=== PATIENT | female | born 1935 | race Caucasian/White ===

== ENCOUNTER 2022-05-08 22:45 | Inpatient (IN) | payer MEDICARE, OTHER ==
[~2022-05-08] VITALS: Ht 160 cm; Wt 44.5 kg
[~2022-05-08 22:45] MED LIST: ATOR20TA PO; LISI10TA29 PO; METO-357 PO; NICA20CA4 PO
--- NOTE | 2022-05-08 22:46 | NUR ---
BIBRA39 FROM HOME, SON STATES "SHE HAD SLURRED SPEECH X1HOUR" WITH LEFT SIDED FACIAL DROOP HX OF STROKE BS-101. PATIENT ALERT AND ORIENTED X3. BROUGHT IN BY STRETCHER TO ROOM 11 ON MONITOR AND POX. SEEN BY MD AT TRIAGE.
--- NOTE | 2022-05-08 22:47 | NUR ---
CODE STROKE ACTIVATED
--- NOTE | 2022-05-08 22:48 | NUR ---
EMT AT BEDSIDE FOR EKG
--- NOTE | 2022-05-08 22:50 | NUR ---
IV CANNULA G18 INSERTED ON RIGHT AC. BLOOD DRAWN AND SENT TO LAB
--- NOTE | 2022-05-08 22:51 | NUR ---
TELEMED NEURO ASSESSMENT ACTIVATED
--- NOTE | 2022-05-08 22:52 | NUR ---
EKG DONE AT BEDSIDE.
--- NOTE | 2022-05-08 22:53 | NUR ---
PATIENT GOING TO CT
--- NOTE | 2022-05-08 22:54 | NUR ---
BLOOD COLLECTED AND SENT TO LAB
[2022-05-08] MEDS ORDERED: ONDANSETRON HCL/PF 4 MG/2 ML VIAL ONE (22:58)
--- NOTE | 2022-05-08 22:58 | NUR ---
PATIENT VOMITED. ORDERED MEDICINE TO GIVE.
[2022-05-08] MEDS ORDERED: ONDANSETRON HCL/PF 4 MG/2 ML VIAL IV ONE (23:00)
--- NOTE | 2022-05-08 23:00 | NUR ---
DR KEENAN ON THE PHONE WITH NEUROLOGIST, DR BROOKE
--- NOTE | 2022-05-08 23:06 | NUR ---
PT BACK FROM CT.
--- NOTE | 2022-05-08 23:15 | NUR ---
TELE NEURO IN PROCESS
--- NOTE | 2022-05-08 23:29 | NUR ---
XRAY DONE AT BEDSIDE
[2022-05-08 23:32] LABS: CALCIUM, SERUM 7.8 mg/dL (8.5-10.1); CARBON DIOXIDE 29 mmol/L (21-32); CHLORIDE 109 mmol/L (98-107); CREATININE 0.8 mg/dL (0.6-1.3); GLUCOSE 101 mg/dL (74-106); SODIUM SERUM 141 mmol/L (136-145); UREA NITROGEN, BLOOD 12 mg/dL (7-18)
[2022-05-08 23:34] LABS: BASOPHILS % (AUTO) 0.4 % (0.0-2.0); EOSINOPHILS % (AUTO) 0.1 % (0.0-6.0); HEMATOCRIT 44 % (33-45); HEMOGLOBIN 13.9 g/dL (11.5-14.8); LYMPHOCYTES # (AUTO) 1.6 K/uL (0.8-4.8); LYMPHOCYTES % (AUTO) 29.2 % (20.0-44.0); MEAN CORPUSCULAR HGB CONC 32 g/dl (31.0-36.0); MEAN CORPUSCULAR VOLUME 101 fL (82-100); MONOCYTES # (AUTO) 0.7 K/uL (0.1-1.30); MONOCYTES % (AUTO) 12.5 % (2.0-12.0); NEUTROPHILS # (AUTO) 3.1 K/uL (1.8-8.9); NEUTROPHILS % (AUTO) 57.8 % (43.0-81.0); PLATELET COUNT (AUTO) 105 K/uL (150-450); RED BLOOD CELL COUNT(AUTO) 4.33 MIL/uL (4.0-5.2); WHITE BLOOD COUNT (AUTO) 5.4 K/uL (4.3-11.0)
--- NOTE | 2022-05-08 23:50 | NUR ---
willian collected and sent to lab
--- NOTE | 2022-05-09 00:10 | NUR ---
urine collected and sent to lab
[2022-05-09 00:48] LABS: BILIRUBIN,URINE NEGATIVE (NEGATIVE); COLOR,URINE YELLOW (YELLOW); LEUKOCYTE ESTERASE ,URINE SMALL (NEGATIVE); NITRITE, URINE NEGATIVE (NEGATIVE); PH,URINE 7.5 (5.0-8.0); PROTEIN,URINE NEGATIVE (NEGATIVE); UGLUCOSE NEGATIVE (NEGATIVE); UROBILINOGEN,URINE 0.2 EU/dL (0.2)
[2022-05-09] MEDS ORDERED: METOPROLOL TARTRATE 50 MG TABLET ONE (01:18)
--- NOTE | 2022-05-09 01:27 | NUR ---
CALL FROM LAB: POSITIVE FOR COVID. AWARE. PT WAS TRANSFERRED TO ISOLATION ROOM. SON AT THE BED SIDE MADE AWARE
[2022-05-09] MEDS ORDERED: METOPROLOL TARTRATE 25 MG TABLET PO ONE (01:30)
[2022-05-09 01:40] LABS: BACTERIA,URINE Few /HPF (None Seen); SQUAMOUS EPITHELIAL CELL,UR Moderate /HPF (None Seen)
--- NOTE | 2022-05-09 01:46 | NUR ---
FAXED COVID RESULTS TO PRATIBHA CROOKS EDI SPECIALIST
--- NOTE | 2022-05-09 02:49 | NUR ---
PER GABE MCKINNON AT [facility], THEY'RE WORKING ON TRANSFERRING PATIENT TO [facility]. PODIATRIC SURGEON MD IS DISHA, AWAITING FOR HIS CALL BACK.
--- NOTE | 2022-05-09 02:52 | NUR ---
DR KEENAN ON THE PHONE WITH AT [facility]
--- NOTE | 2022-05-09 05:15 | NUR ---
PER PRATIBHA CM AT [facility], PT GOT ACCPETED AT [facility] , [facility], RM [address] SALES. # FOR REPORT: [phone] PRATIBHA WILL CALL US BACK WITH AMBULANCE ETA
--- NOTE | 2022-05-09 05:42 | NUR ---
[facility] eta: 1100
[2022-05-09] MEDS ORDERED: LISINOPRIL (20MG) 20 MG TABLET ONE (05:58)
--- NOTE | 2022-05-09 07:53 | NUR ---
[facility] RN FOR REPORT CURRENTLY UNAVAILABLE; CALL BACK IN 30MINS.
--- NOTE | 2022-05-09 08:40 | NUR ---
PT REPORT GIVEN TO MIQUEL GARZON AT [facility].
[2022-05-09] MEDS ORDERED: LISINOPRIL (10MG) 10 MG TABLET PO SCH (09:00)
--- NOTE | 2022-05-09 10:44 | NUR ---
UPDATED TRANSPORT ETA [id number]
--- NOTE | 2022-05-09 12:10 | NUR ---
BP TAKEN 227/118
[2022-05-09] MEDS ORDERED: ALEN70TA80 PO (12:12)
[2022-05-09] MEDS ORDERED: LATA2.5D15 LEFTEYE (12:12)
[2022-05-09] MEDS ORDERED: TAMO20TA4 PO (12:12)
--- NOTE | 2022-05-09 12:17 | NUR ---
RETAKEN BP TAKEN 217/112. INFORMED MD AND STREET FLUSHER DRIVER.
--- NOTE | 2022-05-09 12:23 | NUR ---
PT UNABLE TO BE TAKEN BY TRANSPORTATION D/T ELEVATED BP; PT UNSTABLE FOR TRANSPORT.
[2022-05-09] MEDS ORDERED: ASPI-1169 PO (13:00)
[2022-05-09] MEDS ORDERED: MAGN250T2 PO (13:00)
[2022-05-09] MEDS ORDERED: TURM500C9 PO (13:00)
[2022-05-09] MEDS ORDERED: MULT-447 PO (13:00)
[2022-05-09] MEDS ORDERED: hydrALAZINE HCL IV 20 MG VIAL IV ONE (13:00)
[2022-05-09] MEDS ORDERED: VIT1CAPS44 PO (13:00)
[2022-05-09] MEDS ORDERED: TIMO5DRO31 EACHEYE (13:00)
[2022-05-09] MEDS ORDERED: ALBUTEROL SULFATE 8 GM HFA.AER.AD IH PRN (13:30)
[2022-05-09] MEDS ORDERED: ACETAMINOPHEN 650 MG/SUPP.RECT RC PRN (13:30)
[2022-05-09] MEDS ORDERED: ONDANSETRON HCL/PF 4 MG/2 ML VIAL IVP PRN (13:30)
[2022-05-09] MEDS ORDERED: hydrALAZINE HCL IV 20 MG VIAL ONE (13:31)
--- NOTE | 2022-05-09 13:45 | NUR ---
[facility] WAS NOTFIED OF PT STATUS
[2022-05-09 14:01] LABS: BASOPHILS % (AUTO) 0.2 % (0.0-2.0); HEMATOCRIT 50 % (33-45); HEMOGLOBIN 16.3 g/dL (11.5-14.8); LYMPHOCYTES # (AUTO) 1.1 K/uL (0.8-4.8); LYMPHOCYTES % (AUTO) 10.5 % (20.0-44.0); MEAN CORPUSCULAR HGB CONC 33 g/dl (31.0-36.0); MEAN CORPUSCULAR VOLUME 97 fL (82-100); MONOCYTES # (AUTO) 0.6 K/uL (0.1-1.30); MONOCYTES % (AUTO) 5.8 % (2.0-12.0); NEUTROPHILS # (AUTO) 8.8 K/uL (1.8-8.9); NEUTROPHILS % (AUTO) 83.5 % (43.0-81.0); PLATELET COUNT (AUTO) 130 K/uL (150-450); RED BLOOD CELL COUNT(AUTO) 5.18 MIL/uL (4.0-5.2); WHITE BLOOD COUNT (AUTO) 10.5 K/uL (4.3-11.0)
[2022-05-09 14:14] LABS: CARBON DIOXIDE 29 mmol/L (21-32); CHLORIDE 103 mmol/L (98-107); SODIUM SERUM 142 mmol/L (136-145)
[2022-05-09 14:37] LABS: ALANINE AMINOTRANSFERASE 30 U/L (12-78); ALBUMIN 3.3 g/dL (3.4-5.0); ALKALINE PHOSPHATASE 57 U/L (46-116); ASPARTATE AMINOTRANSFERASE 41 U/L (15-37); BILIRUBIN,TOTAL 0.5 mg/dL (0.2-1.0); CALCIUM, SERUM 8.3 mg/dL (8.5-10.1); CREATININE 0.7 mg/dL (0.6-1.3); GLUCOSE 131 mg/dL (74-106); TOTAL PROTEIN, SERUM 7.1 g/dL (6.4-8.2); UREA NITROGEN, BLOOD 10 mg/dL (7-18)
[2022-05-09] MEDS ORDERED: TIMO10DR19 LEFTEYE (14:37)
--- NOTE | 2022-05-09 14:50 | NUR ---
BED GIVEN 109, PT CAN BE MOVED AFTER 1500
--- NOTE | 2022-05-09 14:52 | NUR ---
PT SEEN BY DR. JIMENEZ W/ ORDERS NOTED.
--- NOTE | 2022-05-09 15:14 | NUR ---
PT REPORT GIVEN TO MIQUEL CANNON
[2022-05-09 15:21] LABS: THYROID STIMULATING HORMONE 1.528 uIU/mL (0.358-3.74)
--- NOTE | 2022-05-09 15:49 | NUR ---
PT TRANSFERRED TO 109 VIA [facility] ACLS PROTOCOL. WARM HANDOFF GIVEN TO MIQUEL CANNON.
[2022-05-09 16:00] VITALS: BP 145/85
--- NOTE | 2022-05-09 16:00 | NUR ---
RN NOTE RECEIVED PATIENT PLACED IN ROOM 109. NO CURRENT SIGNS OF SOB OR PAIN
[2022-05-09] MEDS ORDERED: TIMOLOL MALEATE/PF 0.25% 1 DROP DROPERETTE EACHEYE SCH (17:00)
--- NOTE | 2022-05-09 18:00 | NUR ---
RN NOTE BS LEVEL 131 NO COVERAGE GIVEN DUE TO PATIENTS NPO STATUS
[2022-05-09] MEDS: CEFTRIAXONE 1 G in IV D5W 50 ML IV SCH (18:10)
[2022-05-09] MEDS: BLOOD SUGAR DIAGNOSTIC 1 EACH STRIP IN SCH ×4 (18:10→23:44)
[2022-05-09] MEDS: TIMOLOL MALEATE/PF 0.25% 1 DROP DROPERETTE LEFTEYE SCH (18:11)
--- NOTE | 2022-05-09 19:01 | NUR ---
RN CLOSING NOTE PATIENT RESTING IN BED A/OX1 NO NC 2 L. NO CURRENT COMPLAINTS OF PAIN OR SOB. PATIENT ON TELE MONITOR, IV ACCESS ON RIGHT AC AND LEFT AC RUNNING TKO. PATIENT NPO DUE TO PENDING SWALLOW EVAL. WOUND CARE EVAL PENDING. SAFETY MEASURE IN PLACE WILL ENDORSE TO NIGHT NURSE FOR CHRISTIANA.
[2022-05-09 20:00] VITALS: BP 171/98
--- NOTE | 2022-05-09 20:25 | NUR ---
CALLED [facility]AY[facility] ACADEMIC DEAN REGARDING BP 180S AT THIS TIME, AFTER RECHECK BP 171/98, AWAITING FOR CALL BACK, PER NEUROLOGIST TARGET SBP <180.
--- NOTE | 2022-05-09 20:56 | NUR ---
RECEIVE ORDER FROM ZAYNAB STRAP CUTTER FOR CLONIDINE 0.1 MG Q6 FOR SBP >160, INFORMED AGAIN THAT PATIENT IS NPO AND PER HER TO START HYDRALAZINE 10MG IVP Q6HR FOR SBP >160, ORDE NOTED AND CARRIED OUT.
[2022-05-09] MEDS: ATORVASTATIN 40 MG TABLET PO SCH (21:02)
[2022-05-09] MEDS: LATANOPROST EYE DROP 0.005% 2.5 ML BOTTLE LEFTEYE SCH (21:05)
[2022-05-09] MEDS: hydrALAZINE HCL IV 20 MG VIAL IV PRN (21:06)
[2022-05-09] MEDS ORDERED: LATANOPROST EYE DROP 0.005% 2.5 ML BOTTLE EACHEYE SCH (22:00)
[2022-05-10] VITALS: BP 142/88
--- NOTE | 2022-05-10 00:05 | NUR ---
rn notes, paged natalio manager environmental health and safety fo notify regarding blood sugar 152mg/dl, patient NPO with no sliding scale coverage, awaiting for call back.
--- NOTE | 2022-05-10 00:16 | NUR ---
Tawny construction estimator replied with no new order for blood sugar level, will continue to monitor closely.
[2022-05-10 04:00] VITALS: BP 175/97
[2022-05-10] MEDS: hydrALAZINE HCL IV 20 MG VIAL IV PRN ×2 (04:11→09:39)
[2022-05-10] MEDS: BLOOD SUGAR DIAGNOSTIC 1 EACH STRIP IN SCH ×7 (06:00→22:02)
--- NOTE | 2022-05-10 06:32 | NUR ---
RN CLOSING NOTES, PATIENT IN BED ASLEEP AT THIS TIME, A/O X2 ABLE TO ANSWER SIMPLE QUESTIONS, AT 2LPM VIA NC, WITH O2 >94%, NO SOB/ACUTE DISTRESS NOTED DURING THE NIGHT, NSR IN TELE MONITOR, NPO, WILL HAVE SWALLOW EVALUATION TODAY WELL DIETARY CONSULT, NOTED WITH EXCESSIVE THICK SECRETIONS, ORAL SUCTIONING PROVIDED PRN, HYDRALAZINE IVP GIVEN 2X DURING THE NIGHT FOR ELEVATED BLOOD PRESSURE, VITAL SIGNS STABLE, BED LOCKED AND IN LOWEST POSITION, ALL SAFETY PRECAUTIONS MAINTAINED, CALL LIGHT W/I REACH, WILL ENDORSE CONTINUITY OF CARE TO ONCOMING NURSE.
[2022-05-10 06:34] LABS: HEMATOCRIT 50 % (33-45); HEMOGLOBIN 17.1 g/dL (11.5-14.8); LYMPHOCYTES # (AUTO) 1.1 K/uL (0.8-4.8); LYMPHOCYTES % (AUTO) 9.7 % (20.0-44.0); MEAN CORPUSCULAR HGB CONC 34 g/dl (31.0-36.0); MEAN CORPUSCULAR VOLUME 94 fL (82-100); MONOCYTES # (AUTO) 0.6 K/uL (0.1-1.30); MONOCYTES % (AUTO) 5.5 % (2.0-12.0); NEUTROPHILS # (AUTO) 9.6 K/uL (1.8-8.9); NEUTROPHILS % (AUTO) 84.8 % (43.0-81.0); PLATELET COUNT (AUTO) 123 K/uL (150-450); RED BLOOD CELL COUNT(AUTO) 5.33 MIL/uL (4.0-5.2); WHITE BLOOD COUNT (AUTO) 11.3 K/uL (4.3-11.0)
[2022-05-10 06:57] LABS: ALBUMIN 2.9 g/dL (3.4-5.0); BILIRUBIN,TOTAL 0.4 mg/dL (0.2-1.0); CALCIUM, SERUM 8.3 mg/dL (8.5-10.1); CREATININE 0.8 mg/dL (0.6-1.3); POTASSIUM 3.9 mmol/L (3.5-5.1); TOTAL PROTEIN, SERUM 6.7 g/dL (6.4-8.2)
[2022-05-10 06:59] LABS: CHOLESTEROL 125 mg/dL (<200); HDL CHOLESTEROL 66 mg/dL (40-60); LDL 49 mg/dL (0-99); TRIGLYCERIDES 86 mg/dL (30-150)
[2022-05-10 07:17] LABS: D-DIMER 1.61 mg/L(FEU (0.17-0.50)
--- NOTE | 2022-05-10 07:45 | NUR ---
RN NOTE PT RECEIVED RESTING IN BED, AWAKE ALERT AND RESPONSIVE. ON O2 VIA NC @2L. NOT IN DISTRESS. CONT IN NPO. WITH LAC G20 AND RAC G24. NO IVF RUNNING AT THIS TIME. WILL CONT TO MONITOR.
[2022-05-10 08:00] VITALS: BP 183/118
[2022-05-10] MEDS ORDERED: ASPIRIN 81 MG TAB.CHEW PO SCH (09:00)
[2022-05-10] MEDS: TIMOLOL MALEATE/PF 0.25% 1 DROP DROPERETTE LEFTEYE SCH ×2 (09:43→16:26)
[2022-05-10] MEDS: TAMOXIFEN CITRATE 10 MG TABLET PO SCH (10:35)
[2022-05-10 10:36] LABS: ABG BASE EXCESS 0.1 mmol/L; ABG OXYGEN SATURATION 95.8 % (92.0-98.5); ABG PCO2 31.1 mmHg (35.0-45.0); ABG PH 7.475 (7.350-7.450); ABG PO2 75.7 mmHg (75.0-100.0); AaDO2 87.2 mmHg; COHb 0.3 % (0.5-1.5); MetHb 0.4 % (0.0-1.5); O2Hb 95.1 % (94.0-97.0); SITE, ABG Right Radial; VENT MODE, BG NASAL CANNULA
[2022-05-10] MEDS: LISINOPRIL (10MG) 10 MG TABLET PO SCH (10:36)
[2022-05-10] MEDS: ASPIRIN 81 MG TAB.CHEW PO SCH (10:36)
[2022-05-10] MEDS: METOPROLOL SUCCINATE 50 MG TAB.SR.24H PO SCH (10:36)
[2022-05-10] MEDS: ENOXAPARIN SODIUM 40 MG/0.4 ML DISP.SYRIN SQ SCH (10:38)
--- NOTE | 2022-05-10 10:57 | NUR ---
WOUND CARE CONSULT: REVIEWED CHART, NURSING DOCUMENTATION AND PHOTO WHICH INDICATES SACRAL INTACT DEEP TISSUE INJURY AND SCARRING WHICH EXTENDS TO BUTTOCKS, PRESENT ON ADMISSION. DISCUSSED SKIN PROTECTION WITH NURSING STAFF. MD IN AGREEMENT WITH PLAN OF CARE.
[2022-05-10] MEDS ORDERED: Z GUARD REMEDY 4 OZ OINT TP PRN (11:00)
[2022-05-10 11:24] LABS: ABG OXYGEN SATURATION 87.6 % (92.0-98.5); ABG PCO2 38.2 mmHg (35.0-45.0); ABG PH 7.433 (7.350-7.450); ABG PO2 51.1 mmHg (75.0-100.0); AaDO2 52.9 mmHg; COHb 0.1 % (0.5-1.5); MetHb 0.3 % (0.0-1.5); O2Hb 87.2 % (94.0-97.0); SITE, ABG Right Radial; VENT MODE, BG ROOM AIR
[2022-05-10 12:00] VITALS: BP 133/80
[2022-05-10] MEDS: Z GUARD REMEDY 4 OZ OINT TP SCH (14:57)
[2022-05-10 16:00] VITALS: BP 116/72
[2022-05-10] MEDS: CEFTRIAXONE 1 G in IV D5W 50 ML IV SCH (16:24)
--- NOTE | 2022-05-10 18:07 | NUR ---
RN NOTE PATIENT RESTING ASLEEP IN BED, ALERT AND VERBALLY RESPONSIVE. ON O2 VIA NC @2L. NOT IN RESPIRATORY DISTRESS. UPGRADED TO PUREE DIET. ASPIRATION PRECAUTIONS FOLLOWED. WITH IV ACCESS ON LAC G20 AND RAC G24. NO IVF RUNNING AT THIS TIME. WILL CONT TO MONITOR. ALL DUE MEDICATIONS GIVEN. MORNING AND EVENING CARE RENDERED.
--- NOTE | 2022-05-10 19:35 | NUR ---
RN OPENING NOTES: RECEIVED PATIENT IN BED, AWAKE, ALERT X 2 AND RESPONSIVE PAINFUL STIMULI. ON 2L/MIN VIA N/C AND PT TOLERATED WELL. IV ACCESS ON LAC#20G AND RAC #24G INTACT AND PATENT. NO S/S OF INFILTRATIONS. NO FACIAL GRIMACING. NO ACUTE DISTRESS. HOB ELEVATED. ALL SAFETY MEASURES IN PLACE. BED IN LOWEST POSITION AND LOCKED. SIDE RAILS UP X3. PLACE CALL LIGHT WITHIN REACH. WILL CONTINUE TO MONITOR
[2022-05-10 20:00] VITALS: BP 132/88
[2022-05-10] MEDS: ATORVASTATIN 40 MG TABLET PO SCH (21:45)
[2022-05-10] MEDS: LATANOPROST EYE DROP 0.005% 2.5 ML BOTTLE LEFTEYE SCH (21:46)
--- NOTE | 2022-05-10 22:03 | NUR ---
RN NOTES: PT'S BLOOD SUGAR 108. NO COVERAGE. NO S/S OF HYPER/HYPOGLYCEMIA. WILL CONTINUE TO MONITOR
[2022-05-11] VITALS: BP 101/70
[2022-05-11 04:00] VITALS: BP 107/68
--- NOTE | 2022-05-11 06:45 | NUR ---
RN CLOSING NOTES: PATIENT IN BED, SLEEPING BUT EASILY AROUSABLE, ALERT X 2 AND RESPONSIVE PAINFUL STIMULI. ON 2L/MIN VIA N/C AND PT TOLERATED WELL. O2 SAT 100%. IV ACCESS ON LAC#20G AND RAC #24G INTACT AND PATENT. NO S/S OF INFILTRATIONS. NO FACIAL GRIMACING. NO ACUTE DISTRESS. HOB ELEVATED. ALL DUE MEDS GIVEN ORDERED. ALL SAFETY MEASURES IN PLACE. BED IN LOWEST POSITION AND LOCKED. SIDE RAILS UP X3. PLACE CALL LIGHT WITHIN REACH. WILL ENDORSE TO MORNING SHIFT NURSE.
[2022-05-11] MEDS: BLOOD SUGAR DIAGNOSTIC 1 EACH STRIP IN SCH ×4 (07:30→22:00)
--- NOTE | 2022-05-11 07:52 | NUR ---
RN NOTE PATIENT RESTING ASLEEP IN BED, ALERT AND VERBALLY RESPONSIVE. ON O2 VIA NC @2L. DOES NOT STATE ANY SOB, OR PAIN AT THIS TIME. IV ACCESS ON RAC 24G AND LAC 20G SL. SAFETY MEASURE IN PLACE, BED ALARM ACTIVATED 2 SIDE RAILS UP AND CALL LIGHT WITHIN REACH.
[2022-05-11 08:00] VITALS: BP 152/82
[2022-05-11] MEDS: TIMOLOL MALEATE/PF 0.25% 1 DROP DROPERETTE LEFTEYE SCH ×2 (08:35→17:20)
[2022-05-11] MEDS: Z GUARD REMEDY 4 OZ OINT TP SCH (08:35)
[2022-05-11] MEDS: TAMOXIFEN CITRATE 10 MG TABLET PO SCH (08:36)
[2022-05-11] MEDS: ASPIRIN 81 MG TAB.CHEW PO SCH (08:36)
[2022-05-11] MEDS: METOPROLOL SUCCINATE 50 MG TAB.SR.24H PO SCH (08:38)
[2022-05-11] MEDS: LISINOPRIL (10MG) 10 MG TABLET PO SCH (08:38)
[2022-05-11] MEDS: ENOXAPARIN SODIUM 40 MG/0.4 ML DISP.SYRIN SQ SCH (08:39)
[2022-05-11 12:00] VITALS: BP 165/88
[2022-05-11 16:00] VITALS: BP 153/94
[2022-05-11] MEDS: IV D5/ 0.9% NACL 1,000 ML IV PRN (17:19)
[2022-05-11] MEDS: CEFTRIAXONE 1 G in IV D5W 50 ML IV SCH (17:21)
--- NOTE | 2022-05-11 18:46 | NUR ---
RN CLOSING NOTES PATIENT IN BED, ALERT X 2 AND RESPONSIVE PAINFUL STIMULI. ON 2L/MIN VIA N/C AND PT TOLERATED WELL. O2 SAT 100%. IV ACCESS ON LAC#20G AND RAC #24G INTACT AND PATENT RUNNING D5NS AT 100MLS/HR. NO S/S OF INFILTRATIONS. NO FACIAL GRIMACING. NO ACUTE DISTRESS. HOB ELEVATED. ALL DUE MEDS GIVEN ORDERED. ALL SAFETY MEASURES IN PLACE. BED IN LOWEST POSITION AND LOCKED. SIDE RAILS UP X3. PLACE CALL LIGHT WITHIN REACH. WILL ENDORSE TO DOWELER NURSE.
[2022-05-11 20:00] VITALS: BP 130/89
--- NOTE | 2022-05-11 20:00 | NUR ---
PROJECT GEOPHYSICIST OPENING NOTES: RECEIVED PATIENT SLEEP IN BED COMFORTABLY, AROUSABLE TO TACTILE STIMULI, BED IN LOW POSITION CALL LIGHTS WITHIN REACH, NO COMPLAIN OF PAIN AND DISCOMFORT AT THIS TIME. ON O2 INHALATION AT 2LPM SATURATING WELL, HOB AT 45 DEGREE NO SOB WAS OBSERVED, PATIENT IS COVID (+), IV LINE AT RAC#24 WITH ONGOING D5NS@100ML/HR INFUSING WELL PATIENT KEPT CLEAN AND DRY ALL NEEDS MET, WILL CONTINUE TO MONITOR.
[2022-05-11] MEDS: ATORVASTATIN 40 MG TABLET PO SCH (22:00)
--- NOTE | 2022-05-11 22:32 | NUR ---
RN NOTES: PATIENT BLOOD SUGAR-107 NO INSULIN GIVEN, PATIENT IS ALSO NPO
--- NOTE | 2022-05-11 22:33 | NUR ---
RN NOTES: CESILIATOR NOT GIVEN PATIENT ON NPO SUBJECT FOR SWALLOW EVAL TOMORROW IN AM
[2022-05-11] MEDS: LATANOPROST EYE DROP 0.005% 2.5 ML BOTTLE LEFTEYE SCH (22:39)
[2022-05-12] VITALS (7 sets, daily range): BP systolic 128–185; BP diastolic 83–105
[2022-05-12] MEDS: hydrALAZINE HCL IV 20 MG VIAL IV PRN ×3 (00:19→23:17)
--- NOTE | 2022-05-12 07:00 | NUR ---
SEED CLEANING MACHINE OPERATOR CLOSING NOTES: PATIENT SLEEP IN BED COMFORTABLY, AROUSABLE TO VERBAL STIMULI, BED IN LOW POSITION CALL LIGHTS WITHIN REACH, NO COMPLAIN OF PAIN AND DISCOMFORT AT THIS TIME ON O2 INHALATION AT 2LPM SATURATING WELL, PATIENT ON TELE MONITOR SR-88, KEPT CLEAN AND DRY ALLL NEEDS MET ENDORSE TO INCOMING SHIFT.
[2022-05-12 07:08] LABS: CALCIUM, SERUM 8.4 mg/dL (8.5-10.1); CARBON DIOXIDE 27 mmol/L (21-32); CHLORIDE 111 mmol/L (98-107); CREATININE 0.7 mg/dL (0.6-1.3); GLUCOSE 134 mg/dL (74-106); SODIUM SERUM 147 mmol/L (136-145); UREA NITROGEN, BLOOD 43 mg/dL (7-18)
[2022-05-12 07:10] LABS: HEMATOCRIT 47 % (33-45); HEMOGLOBIN 15.9 g/dL (11.5-14.8); LYMPHOCYTES # (AUTO) 0.9 K/uL (0.8-4.8); LYMPHOCYTES % (AUTO) 12.6 % (20.0-44.0); MEAN CORPUSCULAR HGB CONC 34 g/dl (31.0-36.0); MEAN CORPUSCULAR VOLUME 95 fL (82-100); MONOCYTES # (AUTO) 0.7 K/uL (0.1-1.30); MONOCYTES % (AUTO) 9.7 % (2.0-12.0); NEUTROPHILS # (AUTO) 5.5 K/uL (1.8-8.9); NEUTROPHILS % (AUTO) 77.7 % (43.0-81.0); PLATELET COUNT (AUTO) 120 K/uL (150-450)
--- NOTE | 2022-05-12 07:10 | NUR ---
RN NOTE RECEIVED PATIENT IN BED RESTING ALERT ORIENTED X1 VERBALLY RESPONSIVE ON 3L OXYGEN VIA NASAL CANNULA.NPO WILL DO SWALLOW EVAL TODAY.IV SITE IS ON RIGHT AC AND LEFT AC INTACT PATENT ON D5NS 100CC/HR IV HYDRATION,SAFETY MEASURE IMPLEMENT BED IN LOW POSITION AND LOCKED,BED ALARM IS ON HEAD OF THE BED ELEVATED,CALL LIGHT WITHIN REACH CONTINUE TO MONITOR.
[2022-05-12] MEDS: BLOOD SUGAR DIAGNOSTIC 1 EACH STRIP IN SCH ×4 (07:32→22:49)
[2022-05-12] MEDS: TIMOLOL MALEATE/PF 0.25% 1 DROP DROPERETTE LEFTEYE SCH ×2 (08:33→16:14)
[2022-05-12] MEDS: METOPROLOL SUCCINATE 50 MG TAB.SR.24H PO SCH (08:34)
[2022-05-12] MEDS: LISINOPRIL (10MG) 10 MG TABLET PO SCH (08:34)
[2022-05-12] MEDS: ENOXAPARIN SODIUM 40 MG/0.4 ML DISP.SYRIN SQ SCH (08:37)
[2022-05-12] MEDS: ASPIRIN 81 MG TAB.CHEW PO SCH (08:43)
[2022-05-12] MEDS: TAMOXIFEN CITRATE 10 MG TABLET PO SCH (08:43)
[2022-05-12] MEDS: Z GUARD REMEDY 4 OZ OINT TP SCH (08:46)
[2022-05-12] MEDS: POTASSIUM CL. PREMIX PERIPHER. 50 ML IV SCH ×6 (10:38→15:57)
[2022-05-12] MEDS ORDERED: TIMO1DRO LEFTEYE (12:51)
[2022-05-12] MEDS ORDERED: LISI10TA29 PO (12:51)
[2022-05-12] MEDS ORDERED: METO50TA7 PO (12:51)
[2022-05-12] MEDS ORDERED: ASPI-1169 PO (12:51)
[2022-05-12] MEDS ORDERED: LATA2.5D2 LEFTEYE (12:51)
[2022-05-12] MEDS ORDERED: NITR100C6 PO (12:53)
[2022-05-12] MEDS: IV D5/ 0.9% NACL 1,000 ML IV PRN (12:53)
--- NOTE | 2022-05-12 16:00 | NUR ---
RN NOTE HYDRALAZINE 10MG PRN GIVEN FOR BP 183/105,CONTINUE TO MONITOR
[2022-05-12] MEDS: CEFTRIAXONE 1 G in IV D5W 50 ML IV SCH (16:13)
--- NOTE | 2022-05-12 17:32 | NUR ---
RN NOTE PATIENT WILL DISCHARGE TO [facility],REPORT GIVEN TO FRAN LAFLEUR,NOTIFIED OMER PATIENT SON CONTINUE TO MONITOR.
[2022-05-12] MEDS ORDERED: CLONIDINE HCL 0.1 MG TABLET PO ONE ×2 (18:00→19:30)
--- NOTE | 2022-05-12 18:58 | NUR ---
RN NOTE PATIENT REMAINS ON ALERT ORIENTED X1 CONFUSED ON 3L OXYGEN VIA NASAL CANNULA O2:97% NO SOB NOT ACUTE DISTRESS NOTED ALL DUE MEDS GIVEN MD ORDERED KEPT CLEAN AND DRY ALL THE TIME,HEAD OF THE BED ELEVATED ALL THE TIME,ENDORSE NEXT COMING SHIFT FOR CONTINUATION OF CARE.
--- NOTE | 2022-05-12 19:20 | NUR ---
CAREER DEVELOPMENT COUNSELOR OPENING NOTE RECEIVED PATIENT IN BED RESTING; AWAKE, ALERT AND ORIENTED X1. BREATHING IS EVEN AND NONLABORED. ON OXYGEN INHALATION @ 3LPM VIA NASAL CANNULA; TOLERATING WELL. WITH IV ACCESS ON LEFT ANTECUBITAL G#20 & RIGHT ANTECUBITAL G#24; PATENT, INTACT AND SALINE LOCKED. SAFETY MEASURES IMPLEMENTED: CALL LIGHT AND TABLE WITHIN REACH, HEAD OF THE BED ELEVATED, SIDE RAILS UP X2, BED ON LOWEST LOCKED POSITION. WILL CONTINUE TO MONITOR.
--- NOTE | 2022-05-12 21:12 | NUR ---
RN NOTES Called [facility] ambulance re cotton picker time since it was supposed to be at 1999. Spoke to Daija, cotton picker time will be between [phone]. Primary MIQUEL Paige made aware. Addendum: 05/12/22 at 2212 by DAVIN DAVENPORT RN 2007 follow up call made to [facility] c/o SOLIS Orellana is 30 mins to an hr
--- NOTE | 2022-05-12 23:17 | NUR ---
RN NOTE BP TAKEN - 176/94; PRN HYDRALAZINE 10 MG GIVEN IVP ORDERED. WILL CONTINUE TO MONITOR AND REASSESS PATIENT
[2022-05-12] MEDS: ATORVASTATIN 40 MG TABLET PO SCH (23:29)
[2022-05-12] MEDS: LATANOPROST EYE DROP 0.005% 2.5 ML BOTTLE LEFTEYE SCH (23:29)
--- NOTE | 2022-05-12 23:58 | NUR ---
ASSISTANT CLINICAL DIRECTORRESEARCH GROUP DIRECTOR NOTE DISCHARGED PATIENT IN STABLE CONDITION WITH STABLE VITAL SIGNS. BP - 126/69 MM HG, WV-78 BPM. NO SOB NOTED. DENIES ANY PAIN OR DISCOMFORT OF THIS TIME. DISCHARGE INSTRUCTIONS GIVEN TO THE PATIENT AND AMBULANCE TEAM. BELONGINGS ACCOUNTED AND SIGNED FOR. PATIENT WAS PICKED UP AND LEFT THE HOSPITAL IN STABLE CONDITION. CHARGE NURSE AND MD AWARE OF THE DISCHARGE.
[2022-05-13] MEDS ORDERED: ALENDRONATE 70 MG TABLET PO SCH (07:00)
== END 2022-05-13 03:51 | DRG 177 ==
LOC: ER 22:48 → TELE1 05-09 15:04 → MEDSG1 05-12 07:49
PROVIDERS: ADMIT Nurse Practitioner Acute Care; ATTEND Nurse Practitioner Acute Care
DX: U07.1 COVID-19 (principal); G93.41 Metabolic encephalopathy; D68.59 Other primary thrombophilia; N39.0 Urinary tract infection, site not specified; I69.354 Hemiplegia and hemiparesis following cerebral infarction affecting left non-dominant side; I16.0 Hypertensive urgency; I10 Essential (primary) hypertension; D75.1 Secondary polycythemia; E78.5 Hyperlipidemia, unspecified; F03.90 Unspecified dementia, unspecified severity, without behavioral disturbance, psychotic disturbance, mood disturbance, and anxiety; Z74.09 Other reduced mobility; R53.1 Weakness; M81.0 Age-related osteoporosis without current pathological fracture; R09.02 Hypoxemia; R29.810 Facial weakness; R47.81 Slurred speech
CPT/HCPCS: 36415; 36600; 70450-TC; 70496-TC; 70498-TC; 70544-TC; 70547-TC; 70551-TC; 71045-TC; 80048-TC; 80053-TC; 80061-TC; 81001; 82803-TC; 82962-TC; 83880; 84443-TC; 84484-TC; 85025-TC; 85378-TC; 85652-TC; 85730-TC; 86140-TC; 87081-TC; 87086-TC; 87186-TC; 92526; 92611-TC; 94799-TC; 97110-TC; 97112-TC; 97530-TC; C9803; G0378; J0360; J0696; J1650; J2405; J3480; J7042; J7050; J7060